=== PATIENT | female | born 1970 | race Caucasian/White ===

== ENCOUNTER 2018-01-01 05:50 | Day surgery (SDC) | payer OTHER ==
[~2018-01-01] VITALS: Ht 167.6 cm; Wt 88.0 kg
[2018-01-01] MEDS ORDERED: CEFAZOLIN SOD 1 GM/ ISO 50 ML PREMIX IV ONE (07:15)
[2018-01-01] MEDS ORDERED: KETOROLAC TROMETHAMINE 30 MG VIAL IVP ONE (07:30)
[2018-01-01] MEDS ORDERED: ROCURONIUM BROMIDE 10 MG/ML (ZEMURON) IV ONE (07:30)
[2018-01-01] MEDS ORDERED: LR 1,000 ML IV.SOLN IV ONE (07:30)
[2018-01-01] MEDS ORDERED: fentaNYL CITRATE/PF 100 MCG/2 ML AMP IVP ONE (07:30)
[2018-01-01] MEDS ORDERED: MIDAZOLAM HCL 5 MG/5 ML VIAL IVP ONE (07:30)
[2018-01-01] MEDS ORDERED: DEXAMETHASONE SOD PHOSPHATE 4 MG/ML VIAL IVP ONE (07:30)
[2018-01-01] MEDS ORDERED: NS IRRIG SOLN 1000 ML IR ONE (07:30)
[2018-01-01] MEDS ORDERED: ONDANSETRON HCL 4 MG/2 ML VIAL IVP ONE (07:30)
[2018-01-01] MEDS ORDERED: SEVOFLURANE 15 MIN GAS INH ONE (07:30)
[2018-01-01] MEDS ORDERED: PROPOFOL 200MG/ 20ML VIAL (DIPRIVAN) IV ONE (07:30)
[2018-01-01] MEDS ORDERED: fentaNYL CITRATE/PF 100 MCG/2 ML AMP IVP PRN ×2 (08:15)
[2018-01-01] MEDS ORDERED: METOCLOPRAMIDE HCL 10 MG/2 ML VIAL IVP PRN (08:15)
[2018-01-01] MEDS ORDERED: ONDANSETRON HCL 4 MG/2 ML VIAL IVP PRN (09:15)
[2018-01-01] MEDS ORDERED: HYDROcodone/ACETAMIN 5-325 MG TAB (NORCO/ VICODIN) PO PRN (09:15)
[2018-01-01] MEDS ORDERED: OXYCODONE/ACETAMINOPHEN 5-325 TABLET PO PRN (09:15)
[2018-01-01] MEDS ORDERED: fentaNYL CITRATE/PF 100 MCG/2 ML AMP ONE (09:27)
[2018-01-01 11:05] VITALS: BP_SYST 137
[2018-01-01] MEDS ORDERED: HYDROcodone/ACETAMIN 5-325 MG TAB (NORCO/ VICODIN) ONE (11:41)
== END 2018-01-01 12:00 | disposition home or self-care (01) ==
LOC: SDS 05:50 → SMU 05:50 → EDBD 07:30 → SDS 12:00
PROVIDERS: ATTEND Specialist
DX: N80.1 Endometriosis of ovary (principal); N73.6 Female pelvic peritoneal adhesions (postinfective); Z68.32 Body mass index [BMI] 32.0-32.9, adult
CPT/HCPCS: 58661; 88108; 88305; C1727; C1782; J0690; J1100; J1885; J2250; J2405; J2704; J3010; J7120; 88304